=== PATIENT | male | born 1980 | race Two or more races ===

== ENCOUNTER 2016-04-26 12:08 | Emergency (ER) | payer SELFPAY ==
[2016-04-26 12:15] VITALS: BP 165/114
[2016-04-26] MEDS ORDERED: ACETAMINOPHEN 325 MG TABLET. PO ONE (12:45)
--- NOTE | 2016-04-26 13:16 | RAD ---
Left lower extremity venous ultrasound, 04/26/2016 : History: Left leg pain Duplex evaluation including grayscale, color flow and spectral Doppler analysis was performed. The femoral and popliteal veins show no filling defects to suggest DVT. The visualized calf veins are unremarkable. IMPRESSION: There is no sonographic evidence of deep vein thrombosis in the left lower extremity
[2016-04-26] MEDS ORDERED: CYCL10TA2 PO (13:32)
[2016-04-26] MEDS ORDERED: PRED20TA PO (13:32)
--- NOTE | 2016-04-26 13:32 | PHYS DOC ---
Past Medical History Past Medical History: No Pertinent History Past Surgical History: No Surgical History Alcohol Use: Occasionally Drug Use: None Adult General Chief Complaint Chief Complaint: LOWER EXT PAIN HPI HPI Patient is a 35 year old presents emergency department stating that he is having left thigh and leg pain. He states that the pain starts up to the area. He denies any injury or trauma. He denies any numbness or tingling down into the leg. He denies any long travels. Patient states she's been taken for ibuprofen 6 the mornings with no relief. Patient has not taken anything further for pain and discomfort. Review of Systems Review of Systems Constitutional: Denies fever or chills [] Eyes: Denies change in visual acuity, redness, or eye pain [] HENT: Denies nasal congestion or sore throat [] Respiratory: Denies cough or shortness of breath [] Cardiovascular: No additional information not addressed in HPI [] GI: Denies abdominal pain, nausea, vomiting, bloody stools or diarrhea [] : Denies dysuria or hematuria [] Musculoskeletal: Denies back pain. Left thigh and leg pain radiating from the hip Integument: Denies rash or skin lesions [] Neurologic: Denies headache, focal weakness or sensory changes [] Current Medications Current Medications Current Medications Medications (Trade) Dose Ordered Sig/[facility] Start Time Stop Time Status Last Admin Dose Admin Acetaminophen (Tylenol) 650 mg 1X ONCE 04/26/16 12:45 04/26/16 12:46 DC 04/26/16 12:44 650 MG Allergies Allergies Allergies Coded Allergies Type Severity Reaction Last Updated Verified Penicillins Allergy Intermediate 04/26/16 Yes Physical Exam Physical Exam Constitutional: Well developed, well nourished, no acute distress, non-toxic appearance. [] HENT: Normocephalic, atraumatic, bilateral external ears normal, oropharynx moist, no oral exudates, nose normal. [] Eyes: PERRLA, EOMI, conjunctiva normal, no discharge. [] Neck: Normal range of motion, no tenderness, supple, no stridor. [] Cardiovascular:Heart rate regular rhythm, no murmur [] Lungs & Thorax: Bilateral breath sounds clear to auscultation [] Skin: Warm, dry, no erythema, no rash. [] Back: No tenderness Extremities: Left hip tenderness, no cyanosis, no clubbing, ROM intact, no edema. Peripheral pulses 2+ cap refill brisk less than 2 seconds. Left leg with no discoloration no bruising and no swelling noted. Neurologic: Alert and oriented X 3, normal motor function, normal sensory function, no focal deficits noted. [] Psychologic: Affect normal, judgement normal, mood normal. [] Current Patient Data Vital Signs Vital Signs Date Time Temp Pulse Resp B/P Pulse Ox O2 Delivery O2 Flow Rate FiO2 04/26/16 12:15 97.8 84 18 99 Room Air 97.8 EKG EKG [] Radiology/Procedures Radiology/Procedures [facility] [address] [place], [place] [id number] IMAGING REPORT Signed PATIENT: KATHIA MOON ACCOUNT: [id number] : 1980 LOCATION: ER AGE: 35 SEX: M EXAM STATUS: REG ER ORD. PHYSICIAN: OLGA VENTURA NP REASON: pain in the calf and thigh + homans PROCEDURE: VENOUS LOWER EXTREMITY LEFT Left lower extremity venous ultrasound, 04/26/2016 : History: Left leg pain Duplex evaluation including grayscale, color flow and spectral Doppler analysis was performed. The femoral and popliteal veins show no filling defects to suggest DVT. The visualized calf veins are unremarkable. IMPRESSION: There is no sonographic evidence of deep vein thrombosis in the left lower extremity DICTATED and SIGNED BY: LD MALCOLM MD DATE: 04/26/16 1313 CC: OLGA VENTURA NP; NO PCP ~ [] Course & Med Decision Making Course & Med Decision Making Pertinent Labs and Imaging studies reviewed. (See chart for details) On palpation of the left hip was able to reproduce the pain radiating down into the leg. I believe that the pain is from a sciatic issue. Venous Doppler was negative for any blood clots. We'll recommend patient to continue to use ibuprofen 800 mg every 8 hours. We'll provide him with Flexeril and we'll also provide him with some steroids to help with inflammation. We'll provide him with a doctor's list to follow up with her primary care physician in the next 5- 7 days. Since symptoms to return back to emergency department will also be provided. Was instructed Flexeril will cause drowsiness do not take any be alert and oriented. Patient agrees with discharge instructions treatment regimens and follow-up recommendations. Patient is concerned that he may need something more for pain and discomfort. Explained to patient to try the medication prescribed as flexeril will also help with pain. [] Dragon Disclaimer Dragon Disclaimer This electronic medical record was generated, in whole or in part, using a voice recognition dictation system. Departure Departure Impression: Primary Impression: Sciatic leg pain Disposition: HOME, SELF-CARE Condition: STABLE Referrals: NO PCP (PCP) Patient Instructions: Sciatica, [id number] Additional Instructions: Ultrasound of your leg revealed blood clots. Activity as tolerated. Medication as prescribed. Ibuprofen 800 mg every 8 hours with food. Stop taking if you develop an upset stomach. Flexeril will cause drowsiness do not take any be alert and oriented. He may also try ice packs to the area on 20 minutes off 20 minutes several times a day. Follow-up with her primary care physician in the next 5-7 days. Return to emergency percent symptoms of become worse. Scripts Prednisone 20 Mg [id number] Mg PO DAILY #10 TAB Prov:OLGA VENTURA NP 04/26/16 Cyclobenzaprine Hcl 10 Mg [id number] Mg PO TID #20 TAB Prov:OLGA VENTURA NP 04/26/16 OLGA VENTURA NP Apr 26, 2016 13:32
== END 2016-04-26 13:59 | disposition home or self-care (01) ==
LOC: ER 12:08
DX: M54.32 Sciatica, left side (principal); M79.605 Pain in left leg; Z88.0 Allergy status to penicillin
CPT/HCPCS: 93971; 99284-25